=== PATIENT | male | born 2000 | race Caucasian/White ===

== ENCOUNTER 2021-11-20 16:17 | Emergency (ER) | payer MEDICAID ==
[~2021-11-20] VITALS: Ht 180.3 cm; Wt 65.9 kg
[2021-11-20 16:23] VITALS: BP 107/66
[2021-11-20] MEDS ORDERED: IBUPROFEN 800 MG TABLET PO ONE (17:00)
[2021-11-20] MEDS ORDERED: CYCLOBENZAPRINE HCL 10 MG TABLET PO ONE (17:00)
== END 2021-11-20 17:32 | disposition home or self-care (01) ==
LOC: EMS 16:21
DX: S16.1XXA Strain of muscle, fascia and tendon at neck level, initial encounter (principal); F12.90 Cannabis use, unspecified, uncomplicated; V49.9XXA Car occupant (driver) (passenger) injured in unspecified traffic accident, initial encounter; Y93.89 Activity, other specified; Y92.89 Other specified places as the place of occurrence of the external cause; Y99.8 Other external cause status
CPT/HCPCS: 99283

== ENCOUNTER 2022-12-18 20:04 | Inpatient (IN) | payer MEDICAID ==
[~2022-12-18] VITALS: Ht 177.8 cm; Wt 63.4 kg
[2022-12-18 20:54] LABS: COVID AG,FIA SOURCE NASOPHARYNGEAL
[2022-12-18 21:20] LABS: BASOPHILS % (AUTO) 0.3 % (0.0-2.0); EOSINOPHILS % (AUTO) 0.2 % (1.0-6.0); HEMATOCRIT 42.2 % (41-53); HEMOGLOBIN 13.7 g/dL (13.5-17.5); LYMPHOCYTES # (AUTO) 1.3 K/uL (1.0-4.8); LYMPHOCYTES % (AUTO) 13.7 % (22.0-44.0); MEAN CORPUSCULAR HEMOGLOBIN 26.7 pg (26.0-34.0); MEAN CORPUSCULAR HGB CONC 32.5 G/dL (31.0-37.0); MEAN CORPUSCULAR VOLUME 82 fL (80-100); MONOCYTES # (AUTO) 0.5 K/uL (0.1-1.0); NEUTROPHILS # (AUTO) 7.6 K/uL (1.8-7.7); NEUTROPHILS % (AUTO) 80.8 % (40.0-70.0); PLATELET COUNT (AUTO) 177 K/uL (150-450); RED BLOOD CELL COUNT(AUTO) 5.14 MIL/uL (4.50-5.90); RED CELL DISTRIBUTION WIDTH 13.6 % (11.5-14.5)
[2022-12-18 21:26] LABS: ANION GAP 5 mmol/L (8-16); CALCIUM, TOTAL 9.4 mg/dL (8.8-10.5); CARBON DIOXIDE 29 mmol/L (22-29); CHLORIDE 104 mmol/L (98-107); CREATININE 0.89 mg/dL (0.60-1.30); GLUCOSE,RANDOM 98 mg/dL (70-110); SODIUM SERUM 138 mmol/L (136-145); UREA NITROGEN, BLOOD 12 mg/dL (7-18)
[2022-12-18 21:27] LABS: GLOMERULAR FILTR. RATE CALC > 60 mL/min (>60)
[2022-12-18 21:32] LABS: ALANINE AMINOTRANSFERASE 26 U/L (12-78); ALBUMIN 4.6 g/dL (3.4-5.0); ALKALINE PHOSPHATASE 74 U/L (46-116); ASPARTATE AMINOTRANSFERASE 33 U/L (15-37); BILIRUBIN,TOTAL 0.4 mg/dL (0.1-1.0)
[2022-12-18 22:21] LABS: AMPHET/METH SCREEN,URINE NEGATIVE (NEGATIVE); BARBITURATE SCREEN, URINE NEGATIVE (NEGATIVE); BENZODIAZEPINES SCREEN,URINE NEGATIVE (NEGATIVE); CANNABINOID SCREEN,URINE POSITIVE (NEGATIVE); COCAINE SCREEN,URINE NEGATIVE (NEGATIVE); METHADONE SCREEN, URINE NEGATIVE (NEGATIVE); OPIATE SCREEN,URINE NEGATIVE (NEGATIVE); PHENCYCLIDINE SCREEN,URINE NEGATIVE (NEGATIVE)
[2022-12-19] MEDS ORDERED: LORazepam 2 MG TABLET PO PRN (02:00)
[2022-12-19] MEDS ORDERED: HALOPERIDOL 5 MG TABLET PO PRN (02:00)
[2022-12-19] MEDS ORDERED: ZOLPIDEM TARTRATE 10 MG TABLET PO PRN (02:00)
[2022-12-19 03:26] VITALS: BP 119/62
[2022-12-19] MEDS ORDERED: INFLUENZA VIRUS VACCINE QVS 2022-23 (6MO+)/PF 60 MCG/0.5 ML SYRINGE IM. ONE (04:15)
[2022-12-19] MEDS ORDERED: PETROLATUM,WHITE 28 GM JELLY TP PRN (07:15)
[2022-12-19] MEDS ORDERED: ALBUTEROL SULFATE HFA 90 MCG/PUFF 8 GM INHALER IH PRN (07:15)
[2022-12-19] MEDS ORDERED: MAGNESIUM HYDROXIDE SUSPENSION 30 ML UDCUP PO PRN (07:15)
[2022-12-19] MEDS ORDERED: GuaiFENesin/D-METHORPHAN [SUGAR-FREE] 200-20MG/10 ML SYRUP UDCUP PO PRN (07:15)
[2022-12-19] MEDS ORDERED: NICOTINE 14 MG/24 HOUR PATCH TD PRN (07:15)
[2022-12-19] MEDS ORDERED: ONDANSETRON HCL 4 MG TABLET PO PRN (07:15)
[2022-12-19] MEDS ORDERED: MAG HYDROX/AL HYDROX/SIMETH ES 30 ML SUSPENSION UDCUP PO PRN (07:15)
[2022-12-19] MEDS ORDERED: CloNIDine HCL 0.1 MG TABLET PO PRN (07:15)
[2022-12-19] MEDS ORDERED: DOCUSATE SODIUM 100 MG CAPSULE PO PRN (07:15)
[2022-12-19] MEDS ORDERED: ACETAMINOPHEN 325 MG TABLET PO PRN (07:15)
[2022-12-19] MEDS ORDERED: LOPERAMIDE HCL 2 MG CAPSULE PO PRN (07:15)
[2022-12-19] MEDS ORDERED: IBUPROFEN 400 MG TABLET PO PRN (07:15)
[2022-12-19 08:13] VITALS: BP 121/60
== END 2022-12-19 17:20 | disposition left against medical advice (07) | DRG 750 ==
LOC: EMS 20:10 → 3EI 12-19 00:01 → UNDOADMIN 12-19 00:01 → B3A 12-19 00:01
PROVIDERS: ADMIT Psychiatry & Neurology Child & Adolescent Psychiatry; ATTEND Psychiatry & Neurology Child & Adolescent Psychiatry
DX: F20.9 Schizophrenia, unspecified (principal); F10.10 Alcohol abuse, uncomplicated; F12.10 Cannabis abuse, uncomplicated; F41.9 Anxiety disorder, unspecified; G47.00 Insomnia, unspecified; Z20.822 Contact with and (suspected) exposure to COVID-19; Z79.899 Other long term (current) drug therapy
CPT/HCPCS: 80053; 80307; 85025; 99285; G0480